=== PATIENT | female | born 1990 | race Caucasian/White ===

== ENCOUNTER 2016-10-27 00:02 | Emergency (ER) | payer OTHER ==
[~2016-10-27] VITALS: Ht 170.2 cm; Wt 80.7 kg
[~2016-10-27 00:02] MED LIST: HYDR50 PO; XOPEAER4 INH; Z.0.BCPILL PO
[2016-10-27 00:06] VITALS: BP 142/95; PULSE 98; RESP 20; TEMP 98.1; O2SAT 100
[2016-10-27] MEDS ORDERED: CLON1 PO (00:16)
[2016-10-27 00:17] VITALS: BP 142/95; PULSE 98; RESP 18; TEMP 98.1; O2SAT 100
[2016-10-27 03:13] LABS: AUTOMATED NEUTROPHIL # 4.9 TH/MM3 (1.8-7.7); BASOPHIL # 0.3 TH/MM3 (0-0.2); BASOPHIL % 3.4 % (0.0-2.0); EOSINOPHIL % 0.6 % (0.0-4.0); HEMATOCRIT 41.3 % (35.0-46.0); HEMO FLAGS DIFF FINAL; LYMPH % 25.5 % (9.0-44.0); LYMPHOCYTE # 1.9 TH/MM3 (1.0-4.8); MEAN CELL VOLUME 89.3 FL (80.0-100.0); MEAN CORPUSCULAR HEMOGLOBIN 30.1 PG (27.0-34.0); MEAN CORPUSCULAR HGB CONC 33.7 % (32.0-36.0); MONO % 6.5 % (0.0-8.0); PLATELET COUNT 250 TH/MM3 (150-450); RED BLOOD COUNT 4.62 MIL/MM3 (4.00-5.30); RED CELL DISTRIBUTION WIDTH 13.1 % (11.6-17.2); WHITE BLOOD COUNT 7.6 TH/MM3 (4.0-11.0)
[2016-10-27 03:22] VITALS: BP 142/95; PULSE 98; RESP 18; TEMP 98.1
--- NOTE | 2016-10-27 03:26 | PD ---
HPI Chief Complaint: Anxiety Time Seen by Provider: 02:32 Travel History International Travel<30 days: No Contact w/Intl Traveler<30days: No Traveled to known affect area: No History of Present Illness HPI This a 26-year-old woman who presents to the emergency department after an episode of shortness of breath tonight. States he came on sort out of nowhere. She was sitting at home not doing much of anything. She is a trouble with anxiety and trouble breathing with anxiety in the past. This continued to get worse and she developed worsening shortness of breath. She has a history of exercise-induced asthma and had an inhaler with her. She took a nap. She otherwise has been feeling well. No URI symptoms. She recently flew down on a 3 and half hour flight from [place] about a week ago. She had some cramping in her left leg since that time. She is not sure she injured it or not. No swelling. On OCPs. History Past Medical History Narrative Medical Anxiety Exercise-induced asthma Tetanus Vaccination: Unknown Influenza Vaccination: No LMP: 1 MONTH AGO : 0 Social History Alcohol Use: Yes (DRINKS ALCOHOL ON OCCASION, LAST DRINK 3 WEEKS AGO) Tobacco Use: Yes (1/2 PPD) Allergies-Medications (Allergen,Severity, Reaction): Coded Allergies: Lactose (Verified Allergy, Unknown, Nausea/Vomiting, 10/27/16) GI UPSET. Reported Meds & Prescriptions Reported Meds & Active Scripts Active Reported Klonopin (Clonazepam) 1 Mg Tab 1 Mg PO BID Review of Systems Except as stated in HPI: all other systems reviewed are Neg Physical Exam Narrative GENERAL: Well-appearing 26-year-old woman, no acute distress. SKIN: Warm and dry. HEAD: Atraumatic. Normocephalic. EYES: Pupils equal and round. No scleral icterus. No injection or drainage. ENT: No nasal bleeding or discharge. Mucous membranes pink and moist. NECK: Trachea midline. No JVD. CARDIOVASCULAR: Regular rate and rhythm. No murmur appreciated. RESPIRATORY: No accessory muscle use. Clear to auscultation. Breath sounds equal bilaterally. GASTROINTESTINAL: Abdomen soft, non-tender, nondistended. Hepatic and splenic margins not palpable. MUSCULOSKELETAL: No obvious deformities. No calf pain or swelling. No edema. NEUROLOGICAL: Awake and alert. No obvious cranial nerve deficits. Motor grossly within normal limits. Normal speech. PSYCHIATRIC: Mildly anxious. Data Data Last Documented VS Vital Signs Date Time Temp Pulse Resp B/P Pulse Ox O2 Delivery O2 Flow Rate FiO2 10/27/16 00:17 98.1 98 18 142/95 100 Orders Complete Blood Count With Diff (10/27/16 02:32) Basic Metabolic Panel (Bmp) (10/27/16 02:32) D-Dimer (10/27/16 02:32) Labs Laboratory Tests Test 10/27/16 10/27/16 03:00 03:10 White Blood Count 7.6 TH/MM3 Red Blood Count 4.62 MIL/MM3 Hemoglobin 13.9 GM/DL Hematocrit 41.3 % Mean Corpuscular Volume 89.3 FL Mean Corpuscular Hemoglobin 30.1 PG Mean Corpuscular Hemoglobin 33.7 % Concent Red Cell Distribution Width 13.1 % Platelet Count 250 TH/MM3 Mean Platelet Volume 8.2 FL Neutrophils (%) (Auto) 64.0 % Lymphocytes (%) (Auto) 25.5 % Monocytes (%) (Auto) 6.5 % Eosinophils (%) (Auto) 0.6 % Basophils (%) (Auto) 3.4 % Neutrophils # (Auto) 4.9 TH/MM3 Lymphocytes # (Auto) 1.9 TH/MM3 Monocytes # (Auto) 0.5 TH/MM3 Eosinophils # (Auto) 0.0 TH/MM3 Basophils # (Auto) 0.3 TH/MM3 CBC Comment DIFF FINAL Differential Comment D-Dimer Quantitative (PE/DVT) 0.22 MG/L FEU Sodium Level 139 MEQ/L Potassium Level 3.9 MEQ/L Chloride Level 106 MEQ/L Carbon Dioxide Level 22.9 MEQ/L Anion Gap 10 MEQ/L Blood Urea Nitrogen 14 MG/DL Creatinine 0.84 MG/DL Estimat Glomerular Filtration 83 ML/MIN Rate Random Glucose 95 MG/DL Calcium Level 8.6 MG/DL MDM Medical Decision Making Medical Screen Exam Complete: Yes Emergency Medical Condition: Yes Interpretation(s) CBC unremarkable CMP unremarkable D-dimer 0.2 to Differential Diagnosis Asthma, URI, anxiety, PE, other Narrative Course Medical decision making This 26-year-old woman presents emergent part likely anxiety mediated shortness of breath. She looks well. She has recent travel history, is on OCPs, and has a DVT symptoms but no signs. We'll check d-dimer, labs, supportive treatment. Diagnosis Primary Impression: Anxiety Additional Impression: Shortness of breath Additional Instructions: Follow-up with your primary doctor in return home. Return to the emergency department for any new or worsening symptoms. Med/Other Pt SpecificInfo: No Change to Meds Disposition: 01 DISCHARGE HOME Condition: Stable Brandyn Vallejo MD Oct 27, 2016 03:26
[2016-10-27 03:38] LABS: POTASSIUM 3.9 MEQ/L (3.5-5.1)
[2016-10-27 03:41] LABS: BICARBONATE 22.9 MEQ/L (21.0-32.0)
[2016-10-27 04:13] VITALS: BP 136/88; PULSE 88; RESP 18; O2SAT 99
[2016-10-27 04:15] VITALS: BP 114/79
== END 2016-10-27 04:17 | disposition home or self-care (01) ==
LOC: PHED 00:02
DX: F41.9 Anxiety disorder, unspecified (principal); R06.02 Shortness of breath
CPT/HCPCS: 80048; 85025; 85379; 99283

== ENCOUNTER 2017-09-09 22:34 | Emergency (ER) | payer OTHER ==
[~2017-09-09] VITALS: Ht 167.6 cm; Wt 85.0 kg
[~2017-09-09 22:34] MED LIST changes: +CLON1 PO; -HYDR50 PO; -XOPEAER4 INH; -Z.0.BCPILL PO
[2017-09-09 22:36] VITALS: BP 134/82; PULSE 109; RESP 16; TEMP 99; O2SAT 98
[2017-09-10 02:13] VITALS: O2SAT 97
[2017-09-10 02:18] VITALS: BP 113/56; PULSE 88; RESP 14; O2SAT 96
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
[2017-09-10 02:22] LABS: BACTERIA, URINE RARE /hpf; BILIRUBIN, URINE NEG (NEG); BLOOD, URINE NEG (NEG); GLUCOSE,URINE NEG (NEG); KETONE, URINE NEG (NEG); MUCUS URINE FEW /lpf (OCC); NITRITE,URINE NEG (NEG); SQUAMOUS EPITHELIAL CELL URINE 1 /hpf (0-5); URINE COLOR YELLOW (YELLW/STRAW); URINE LEUKOCYTE ESTERASE NEG (NEG)
[2017-09-10 02:28] LABS: AUTOMATED NEUTROPHIL # 6.1 TH/MM3 (1.8-7.7); BASOPHIL % 0.2 % (0.0-2.0); EOSINOPHIL % 0.2 % (0.0-4.0); HEMATOCRIT 39.6 % (35.0-46.0); HEMOGLOBIN 13.4 GM/DL (11.6-15.3); LYMPH % 21.1 % (9.0-44.0); LYMPHOCYTE # 1.7 TH/MM3 (1.0-4.8); MEAN CELL VOLUME 91.2 FL (80.0-100.0); MEAN CORPUSCULAR HEMOGLOBIN 30.9 PG (27.0-34.0); MEAN CORPUSCULAR HGB CONC 33.9 % (32.0-36.0); MEAN PLATELET VOLUME 7.7 FL (7.0-11.0); MONO % 4.3 % (0.0-8.0); MONOCYTE # 0.4 TH/MM3 (0-0.9); NEUT % 74.2 % (16.0-70.0); PLATELET COUNT 262 TH/MM3 (150-450); RED BLOOD COUNT 4.34 MIL/MM3 (4.00-5.30); RED CELL DISTRIBUTION WIDTH 13.1 % (11.6-17.2); WHITE BLOOD COUNT 8.2 TH/MM3 (4.0-11.0)
[2017-09-10 02:35] LABS: ALKALINE PHOSPHATASE 76 U/L (45-117); TOTAL BILIRUBIN ADULT 0.4 MG/DL (0.2-1.0); TOTAL PROTEIN 7.8 GM/DL (6.4-8.2)
[2017-09-10 02:36] LABS: ALBUMIN 3.8 GM/DL (3.4-5.0); ALT (GPT) 49 U/L (10-53); AST (GOT) 42 U/L (15-37); BLOOD UREA NITROGEN 14 MG/DL (7-18); CALCIUM 8.7 MG/DL (8.5-10.1); CHLORIDE 107 MEQ/L (98-107); CREATININE 0.72 MG/DL (0.50-1.00); GLOMERULAR FILTRATION RATE 98 ML/MIN (>89); GLUCOSE,RANDOM 115 MG/DL (74-106); LIPASE 94 U/L (73-393); MAGNESIUM 2.2 MG/DL (1.5-2.5); SODIUM (NA) 139 MEQ/L (136-145)
[2017-09-10 02:37] LABS: ACETAMINOPHEN LESS THAN 2.0 MCG/ML (10.0-30.0)
[2017-09-10 02:38] LABS: PROTHROMBIN TIME - PATIENT 9.9 SEC (9.8-11.6)
[2017-09-10] MEDS ORDERED: THIAMINE INJ 100 MG in SODIUM CHLORIDE 0.9% INJ 100 ML IV ONE (03:00)
[2017-09-10] MEDS ORDERED: SODIUM CHLOR 0.9% 1000 ML INJ 1,000 ML IV ONE (03:00)
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
[2017-09-10 07:15] VITALS: BP 120/65; PULSE 82; RESP 16; TEMP 98.7; O2SAT 98
[2017-09-10] MEDS ORDERED: BUPR150XL PO (10:59)
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
--- NOTE | 2017-09-10 11:07 | PD ---
Physical Exam Time Seen by Provider: 11:05 Narrative I spoke with the patient a little earlier and she is not having suicidal or homicidal ideations but she would like to see the psychiatrist for medication adjustment. 1106: Dr. Garay has evaluated the patient and cleared the patient for discharge. Data Data Last Documented VS Vital Signs Date Time Temp Pulse Resp B/P (MAP) Pulse Ox O2 Delivery O2 Flow Rate FiO2 09/10/17 07:15 98.7 82 16 120/65 (83) 98 Room Air Orders Orders Complete Blood Count With Diff (09/10/17 01:48) Comprehensive Metabolic Panel (09/10/17 01:48) Prothrombin Time / Inr (Pt) (09/10/17 01:48) Act Partial Throm Time (Ptt) (09/10/17 01:48) Lipase (09/10/17 01:48) Urinalysis - C+S If Indicated (09/10/17 01:48) Magnesium (Mg) (09/10/17 01:48) Iv Access Insert/Monitor (09/10/17 01:48) Ecg Monitoring (09/10/17 01:48) Oximetry (09/10/17 01:48) Psych Screen (09/10/17 01:48) Drug Screen, Random Urine (09/10/17 01:48) Alcohol (Ethanol) (09/10/17 01:48) Salicylates (Aspirin) (09/10/17 01:48) Tylenol (Acetaminophen) (09/10/17 01:48) Sodium Chlor 0.9% 1000 Ml Inj (Ns 1000 M (09/10/17 03:00) Thiamine Inj (Thiamine Inj) (09/10/17 03:00) Ct Brain W/O Iv Contrast(Rout) (09/10/17 02:54) Ct Cerv Spine W/O Contrast (09/10/17 ) Ct Facial Bones W/O Iv Cont (09/10/17 ) Ed Urine Pregnancytest Poc (09/10/17 02:54) Diet Regular Basic (09/10/17 Breakfast) Labs Laboratory Tests Test 09/10/17 02:05 White Blood Count 8.2 TH/MM3 Red Blood Count 4.34 MIL/MM3 Hemoglobin 13.4 GM/DL Hematocrit 39.6 % Mean Corpuscular Volume 91.2 FL Mean Corpuscular Hemoglobin 30.9 PG Mean Corpuscular Hemoglobin Concent 33.9 % Red Cell Distribution Width 13.1 % Platelet Count 262 TH/MM3 Mean Platelet Volume 7.7 FL Neutrophils (%) (Auto) 74.2 % Lymphocytes (%) (Auto) 21.1 % Monocytes (%) (Auto) 4.3 % Eosinophils (%) (Auto) 0.2 % Basophils (%) (Auto) 0.2 % Neutrophils # (Auto) 6.1 TH/MM3 Lymphocytes # (Auto) 1.7 TH/MM3 Monocytes # (Auto) 0.4 TH/MM3 Eosinophils # (Auto) 0.0 TH/MM3 Basophils # (Auto) 0.0 TH/MM3 CBC Comment DIFF FINAL Differential Comment Prothrombin Time 9.9 SEC Prothromb Time International Ratio 1.0 RATIO Activated Partial Thromboplast Time 24.0 SEC Urine Color YELLOW Urine Turbidity CLEAR Urine pH 5.0 Urine Specific [place] 1.013 Urine Protein NEG mg/dL Urine Glucose (UA) NEG mg/dL Urine Ketones NEG mg/dL Urine Occult Blood NEG Urine Nitrite NEG Urine Bilirubin NEG Urine Urobilinogen LESS THAN 2.0 MG/DL Urine Leukocyte Esterase NEG Urine RBC 1 /hpf Urine WBC 2 /hpf Urine Squamous Epithelial Cells 1 /hpf Urine Bacteria RARE /hpf Urine Mucus FEW /lpf Microscopic Urinalysis Comment CULT NOT INDICATED Blood Urea Nitrogen 14 MG/DL Creatinine 0.72 MG/DL Random Glucose 115 MG/DL Total Protein 7.8 GM/DL Albumin 3.8 GM/DL Calcium Level 8.7 MG/DL Magnesium Level 2.2 MG/DL Alkaline Phosphatase 76 U/L Aspartate Amino Transf (AST/SGOT) 42 U/L Alanine Aminotransferase (ALT/SGPT) 49 U/L Total Bilirubin 0.4 MG/DL Sodium Level 139 MEQ/L Potassium Level 4.4 MEQ/L Chloride Level 107 MEQ/L Carbon Dioxide Level 25.0 MEQ/L Anion Gap 7 MEQ/L Estimat Glomerular Filtration Rate 98 ML/MIN Lipase 94 U/L Salicylates Level LESS THAN 1.7 MG/DL Urine Opiates Screen NEG Acetaminophen Level LESS THAN 2.0 MCG/ML Urine Barbiturates Screen NEG Urine Amphetamines Screen NEG Urine Benzodiazepines Screen NEG Urine Cocaine Screen NEG Urine Cannabinoids Screen POS Ethyl Alcohol Level 124 MG/DL [facility] Supervised Visit with [facility]: No Narrative Course Dr. Garay has evaluated the patient and cleared the patient for discharge. Patient contracts safety. Denies suicidal or homicidal ideations. Patient will be provided community resource packet to /[facility] for follow-up. Has friends and family for support. Patient was medically cleared by alternate provider prior to psych screening. Patient has been evaluated by psychiatry and and is now cleared for discharge. Diagnosis Primary Impression: Alcohol abuse Additional Impression: Adjustment disorder with depressed mood Referrals: [facility] (Out patient) [facility] Primary Care Physician Psychiatrist [facility] Additional Instruction: Contract safety to your self and others Stop drinking alcohol Follow-up with Alcoholics Anonymous Follow-up with psychiatry Follow-up with primary care provider Follow-up with [facility] Return to the emergency department immediately with worsening of symptoms Med/Other Pt SpecificInfo: Prescription(s) given Scripts Bupropion HCl ER 24 HR (Wellbutrin Xl 24 HR) 150 Mg Tab 150 MG PO BID for Control Depression, #60 TAB 0 Refills Prov: Wilder Garay MD 09/10/17 Disposition: 01 DISCHARGE HOME Condition: Stable Sophie Reid Sep 10, 2017 11:07
== END 2017-09-10 11:32 | disposition home or self-care (01) ==
LOC: NEPC 22:34 → NEPD 09-10 11:32
DX: F43.21 Adjustment disorder with depressed mood (principal); F10.129 Alcohol abuse with intoxication, unspecified; S00.33XA Contusion of nose, initial encounter; M54.2 Cervicalgia; F41.9 Anxiety disorder, unspecified; F31.9 Bipolar disorder, unspecified; F12.90 Cannabis use, unspecified, uncomplicated; F17.210 Nicotine dependence, cigarettes, uncomplicated; V47.5XXA Car driver injured in collision with fixed or stationary object in traffic accident, initial encounter; Y90.6 Blood alcohol level of 120-199 mg/100 ml
CPT/HCPCS: 70450; 70486; 72125; 80053; 80307; 81001; 83690; 83735; 84703; 85025; 85610; 85730; 96374; 99285; J3411; J7030